=== PATIENT | female | born 1945 | race Caucasian/White ===

== ENCOUNTER 2016-10-28 10:26 | Emergency (ER) | payer MEDICARE ==
[~2016-10-28] VITALS: Ht 170.2 cm; Wt 65.8 kg
[~2016-10-28 10:26] MED LIST: AMOX-427 PO; CHOL50004 PO; CITA10TA17; LACT1CAP71 PO; LEVO25TA2
--- NOTE | 2016-10-28 10:35 | NUR ---
BIBRA FROM HOME DUE TO NAUSEA. DENIES VOMITTING. REPORTED EPISTRIC PAIN AND ONE EIPOSDE OF LBM THIS THIS AM. PATIENT IS AAO4, HOWEVER PATIENT APPEARS ANXIOUS-- WORRIED ABOUT HER BEING SICK. PT'S SKIN IS WARM TO TOUCH AND NON DIAPHORETIC. PATIENT IS AFEBRILE. VSS.
[2016-10-28] MEDS ORDERED: MAG HYDROX/AL HYDROX/SIMETH 30 ML UDC ONE (10:59)
[2016-10-28] MEDS ORDERED: MAG HYDROX/AL HYDROX/SIMETH 30 ML UDC PO ONE (11:00)
--- NOTE | 2016-10-28 11:10 | NUR ---
RAILROAD CAR INSPECTOR AT FOR BLOOD DRAW
[2016-10-28 11:23] LABS: BASOPHILS % (AUTO) 0.6 % (0.0-2.0); EOSINOPHILS # (AUTO) 1.1 /CMM (0.0-0.7); EOSINOPHILS % (AUTO) 17.4 % (0.0-6.0); HEMATOCRIT 39 % (33-45); HEMOGLOBIN 12.8 g/dL (11.5-14.8); LYMPHOCYTES # (AUTO) 0.5 /CMM (0.8-4.8); LYMPHOCYTES % (AUTO) 8.2 % (20.0-44.0); MEAN CORPUSCULAR HEMOGLOBIN 29 PG (26.0-33.0); MEAN CORPUSCULAR HGB CONC 33 g/dl (31.0-36.0); MEAN CORPUSCULAR VOLUME 87 fL (82-100); MONOCYTES # (AUTO) 0.3 /CMM (0.1-1.30); MONOCYTES % (AUTO) 5.3 % (2.0-12.0); NEUTROPHILS # (AUTO) 4.3 /CMM (1.8-8.9); NEUTROPHILS % (AUTO) 68.5 % (43.0-81.0); PLATELET COUNT (AUTO) 166 /CMM (150-450); RDW COEFFICIENT OF VARIATION 12.4 (11.5-15.0); RED BLOOD CELL COUNT(AUTO) 4.47 MIL/uL (4.0-5.2); WHITE BLOOD COUNT (AUTO) 6.2 K/uL (4.3-11.0)
[2016-10-28 11:26] LABS: CALCIUM, SERUM 8.5 mg/dL (8.5-10.1); CREATININE 0.8 mg/dL (0.6-1.3); POTASSIUM 4.1 mmol/L (3.5-5.1)
[2016-10-28 12:22] LABS: EOSINOPHILS % (MANUAL) 17 % (0-4); LYMPHOCYTES % (MANUAL) 11 % (16-48); MONOCYTES % (MANUAL) 3 % (0-11.0); NEUTROPHILS % (MANUAL) 69 (42-76)
[2016-10-28 12:24] LABS: PLATELET ESTIMATE ADEQUATE
[2016-10-28 12:34] LABS: CREATINE KINASE MB 6.6 ng/mL (0-3.6)
[2016-10-28 12:39] VITALS: BP 124/80
--- NOTE | 2016-10-28 12:40 | NUR ---
Patient discharged to home in stable condition. Written and verbal after care instructions given. Patient verbalizes understanding of instruction.
== END 2016-10-28 12:41 | disposition home or self-care (01) ==
LOC: ER 10:30
DX: R53.1 Weakness (principal); R94.4 Abnormal results of kidney function studies; M19.90 Unspecified osteoarthritis, unspecified site; M32.9 Systemic lupus erythematosus, unspecified; M81.0 Age-related osteoporosis without current pathological fracture; E89.0 Postprocedural hypothyroidism; C50.912 Malignant neoplasm of unspecified site of left female breast; Z90.89 Acquired absence of other organs; Z90.710 Acquired absence of both cervix and uterus; Z88.6 Allergy status to analgesic agent; Z88.8 Allergy status to other drugs, medicaments and biological substances
CPT/HCPCS: 36415; 80048; 82550; 82553; 85025; 99284; A4606; Z7610

== ENCOUNTER 2017-05-24 08:03 | Emergency (ER) | payer MEDICARE ==
[~2017-05-24] VITALS: Ht 167.6 cm; Wt 61.2 kg
[2017-05-24 08:15] VITALS: BP 122/69
[2017-05-24] MEDS ORDERED: CEPHALEXIN MONOHYDRATE 500 MG CAPSULE PO ONE ×2 (08:30→08:31)
--- NOTE | 2017-05-24 08:33 | NUR ---
Patient discharged to home in stable condition. Written and verbal after care instructions given. Patient verbalizes understanding of instruction.
== END 2017-05-24 08:34 | disposition home or self-care (01) ==
LOC: ER 08:11
DX: L03.114 Cellulitis of left upper limb (principal); M32.9 Systemic lupus erythematosus, unspecified; M19.90 Unspecified osteoarthritis, unspecified site; Z90.710 Acquired absence of both cervix and uterus; Z90.12 Acquired absence of left breast and nipple; Z88.0 Allergy status to penicillin; Z88.5 Allergy status to narcotic agent
CPT/HCPCS: 99283; A4606; Z7610

== ENCOUNTER 2019-04-29 23:42 | Emergency (ER) | payer MEDICARE ==
[~2019-04-29] VITALS: Ht 167.6 cm; Wt 54.4 kg
--- NOTE | 2019-04-30 00:15 | NUR ---
[id number] FROM HOME C/O VOMITTING X1 DAY. -ABDOMINAL PAIN PT STATES "I FEEL LIKE SOMEONE IS CHOKING ME WHILE I'M EATING" TO ER BED 4, VSS, AWAITING MED EVAL
[2019-04-30] MEDS ORDERED: ONDANSETRON HCL/PF 4 MG/2 ML VIAL IV ONE (00:30)
[2019-04-30] MEDS ORDERED: IV NS 0.9% 1,000 ML IV PRN (00:30)
[2019-04-30 00:34] LABS: BASOPHILS # (AUTO) 0.1 /CMM (0.0-0.2); EOSINOPHILS % (AUTO) 2.2 % (0.0-6.0); HEMATOCRIT 39 % (33-45); HEMOGLOBIN 13.1 g/dL (11.5-14.8); LYMPHOCYTES # (AUTO) 0.5 /CMM (0.8-4.8); LYMPHOCYTES % (AUTO) 8.8 % (20.0-44.0); MEAN CORPUSCULAR HGB CONC 34 g/dl (31.0-36.0); MEAN CORPUSCULAR VOLUME 89 fL (82-100); MONOCYTES # (AUTO) 0.4 /CMM (0.1-1.30); MONOCYTES % (AUTO) 7.4 % (2.0-12.0); NEUTROPHILS # (AUTO) 4.8 /CMM (1.8-8.9); NEUTROPHILS % (AUTO) 80.6 % (43.0-81.0); PLATELET COUNT (AUTO) 177 /CMM (150-450); RED BLOOD CELL COUNT(AUTO) 4.36 MIL/uL (4.0-5.2)
[2019-04-30 00:44] LABS: CALCIUM, SERUM 10.4 mg/dL (8.5-10.1); CARBON DIOXIDE 33 mmol/L (21-32); CHLORIDE 103 mmol/L (98-107); CREATININE 0.9 mg/dL (0.6-1.3); GLUCOSE 123 mg/dL (74-106); POTASSIUM 4.4 mmol/L (3.5-5.1); SODIUM SERUM 140 mmol/L (136-145); UREA NITROGEN, BLOOD 29 mg/dL (7-18)
[2019-04-30] MEDS ORDERED: PROCHLORPERAZINE EDISYLATE 10 MG/2 ML VIAL ONE (01:38)
[2019-04-30] MEDS ORDERED: PROCHLORPERAZINE EDISYLATE 10 MG/2 ML VIAL IVP ONE (02:00)
[2019-04-30 02:36] VITALS: BP 172/83
--- NOTE | 2019-04-30 02:36 | NUR ---
Patient discharged to home in stable condition. Written and verbal after care instructions given. Patient verbalizes understanding of instruction.
== END 2019-04-30 02:37 | disposition home or self-care (01) ==
LOC: ER 23:45
DX: R11.2 Nausea with vomiting, unspecified (principal); Z90.89 Acquired absence of other organs; Z85.3 Personal history of malignant neoplasm of breast; Z90.710 Acquired absence of both cervix and uterus; Z90.12 Acquired absence of left breast and nipple; Z88.0 Allergy status to penicillin; Z88.5 Allergy status to narcotic agent; Z79.899 Other long term (current) drug therapy
CPT/HCPCS: 36415; 80048; 85025; 96361; 96374; 96375; 99283; J0780; J7030

== ENCOUNTER 2019-04-30 05:54 | Emergency (ER) | payer MEDICARE ==
[~2019-04-30] VITALS: Ht 167.6 cm; Wt 54.4 kg
--- NOTE | 2019-04-30 06:13 | NUR ---
PT BIBS C/O:NAUSEA, DISCHARGED HOME FROM ER EARLIER TODAY, UNABLE TO GET INTO HER HOUSE, PER PT, SHE'S "BEEN SITTING IN HER CAR AND NAUSEA GOT WORSE" TO ER BED 4, VSS, AWITING MED EVAL
[2019-04-30] MEDS ORDERED: IV NS 0.9% 1,000 ML BAG IV ONE (06:30)
--- NOTE | 2019-04-30 08:29 | NUR ---
pt awake. sts feeling much better and is trying to call so she can go home.
--- NOTE | 2019-04-30 08:46 | NUR ---
pt now worried. unable to contact who is 89 yrs old. we will call for welfare check.
--- NOTE | 2019-04-30 09:38 | NUR ---
pt was able to contact and is ready to be discharged. pt is ambulatory w/ steady gait. dr farias made aware.
--- NOTE | 2019-04-30 09:41 | NUR ---
Patient discharged to home in stable condition. Written and verbal after care instructions given. Patient verbalizes understanding of instruction.IV removed. Catheter intact and site benign. Pressure and 4x4 applied to site. No bleeding noted.
[2019-04-30 09:43] VITALS: BP 121/77
== END 2019-04-30 09:44 | disposition home or self-care (01) ==
LOC: ER 05:56
DX: R53.1 Weakness (principal); R11.2 Nausea with vomiting, unspecified; Z85.3 Personal history of malignant neoplasm of breast; Z90.89 Acquired absence of other organs; Z90.710 Acquired absence of both cervix and uterus; Z90.12 Acquired absence of left breast and nipple; Z88.0 Allergy status to penicillin; Z88.5 Allergy status to narcotic agent; Z79.899 Other long term (current) drug therapy; Z88.8 Allergy status to other drugs, medicaments and biological substances
CPT/HCPCS: 96360; 99283; J7030

== ENCOUNTER 2019-05-16 11:59 | Emergency (ER) | payer MEDICARE, OTHER ==
[~2019-05-16] VITALS: Ht 167.6 cm; Wt 54.4 kg
--- NOTE | 2019-05-16 12:10 | NUR ---
PT CAME INTO THE ED C/O NAUSEA, VOMITING X 3 WEEKS. PT AAOX4, VSS, BREATHING EVENAND UBNLABORED ON ROOM AIR W/ NAD NOTED. PT CONNECTED TO THE MONITOR AND POX.
[2019-05-16] MEDS ORDERED: ONDANSETRON HCL/PF 4 MG/2 ML VIAL ONE (12:24)
[2019-05-16 12:28] LABS: BASOPHILS # (AUTO) 0.1 /CMM (0.0-0.2); BASOPHILS % (AUTO) 1.2 % (0.0-2.0); EOSINOPHILS % (AUTO) 2.6 % (0.0-6.0); HEMATOCRIT 42 % (33-45); HEMOGLOBIN 13.8 g/dL (11.5-14.8); LYMPHOCYTES # (AUTO) 0.4 /CMM (0.8-4.8); LYMPHOCYTES % (AUTO) 7.4 % (20.0-44.0); MEAN CORPUSCULAR HGB CONC 33 g/dl (31.0-36.0); MEAN CORPUSCULAR VOLUME 91 fL (82-100); MONOCYTES # (AUTO) 0.4 /CMM (0.1-1.30); MONOCYTES % (AUTO) 7.7 % (2.0-12.0); NEUTROPHILS # (AUTO) 4.5 /CMM (1.8-8.9); NEUTROPHILS % (AUTO) 81.1 % (43.0-81.0); PLATELET COUNT (AUTO) 182 /CMM (150-450); RED BLOOD CELL COUNT(AUTO) 4.65 MIL/uL (4.0-5.2); WHITE BLOOD COUNT (AUTO) 5.6 K/uL (4.3-11.0)
[2019-05-16] MEDS ORDERED: ONDANSETRON HCL/PF 4 MG/2 ML VIAL IVP ONE (12:30)
[2019-05-16] MEDS ORDERED: IV NS 0.9% 1,000 ML BAG IV ONE (12:30)
[2019-05-16 12:34] LABS: CALCIUM, SERUM 10.3 mg/dL (8.5-10.1); POTASSIUM 4.5 mmol/L (3.5-5.1)
[2019-05-16 12:40] LABS: ALBUMIN 3.7 g/dL (3.4-5.0); BILIRUBIN,DIRECT 0.2 mg/dL (0.0-0.2); BILIRUBIN,TOTAL 0.7 mg/dL (0.2-1.0); TOTAL PROTEIN, SERUM 7.6 g/dL (6.4-8.2)
[2019-05-16] MEDS ORDERED: METOCLOPRAMIDE HCL 10 MG TABLET ONE (12:58)
[2019-05-16] MEDS ORDERED: METOCLOPRAMIDE HCL 10 MG/10 ML UDC PO ONE (13:00)
[2019-05-16 14:15] VITALS: BP 128/81
--- NOTE | 2019-05-16 14:15 | NUR ---
Patient discharged to home in stable condition. Written and verbal after care instructions given. Patient verbalizes understanding of instruction.
[2019-06-10] MEDS ORDERED: SULF1TAB48 PO (11:55)
== END 2019-05-16 14:15 | disposition home or self-care (01) ==
LOC: ER 11:59
DX: R11.2 Nausea with vomiting, unspecified (principal); E86.0 Dehydration; Z85.3 Personal history of malignant neoplasm of breast; Z90.710 Acquired absence of both cervix and uterus; Z90.89 Acquired absence of other organs; Z90.12 Acquired absence of left breast and nipple; Z88.0 Allergy status to penicillin; Z88.5 Allergy status to narcotic agent; Z79.899 Other long term (current) drug therapy
CPT/HCPCS: 36415; 80048; 80076; 83690; 85025; 93005; 96361; 96374; 99284; J2405; J7030; J8597

== ENCOUNTER 2019-06-09 12:22 | Inpatient (IN) | payer MEDICARE ==
[~2019-06-09] VITALS: Ht 167.6 cm; Wt 49.2 kg
--- NOTE | 2019-06-09 12:27 | NUR ---
BIB FROM HOME C/O PROGRESSING GEN WEAKNESS FOR 5 DAYS, +NAUSEA, RECENTLY PLACE GTUBE LAST JUN 04 SINCE THEN, TO ER BED 11, HOOKED TO [employer] MONITOR, PATIENT NOTED LOOKING PALE, CHANGED TO HOSP GOWN, PROVIDED W WARM BLANKET, AWAITING MD ARROYO.
--- NOTE | 2019-06-09 12:28 | NUR ---
DR SOSA AT BEDSIDE
[2019-06-09] MEDS ORDERED: IV NS 0.9% 1,000 ML BAG IV ONE (12:30)
[2019-06-09] MEDS ORDERED: ONDANSETRON HCL/PF 4 MG/2 ML VIAL IVP ONE (12:30)
--- NOTE | 2019-06-09 12:35 | NUR ---
GOT [id number]
[2019-06-09 12:49] LABS: BASOPHILS # (AUTO) 0.1 /CMM (0.0-0.2); BASOPHILS % (AUTO) 0.8 % (0.0-2.0); EOSINOPHILS % (AUTO) 1.9 % (0.0-6.0); HEMATOCRIT 48 % (33-45); HEMOGLOBIN 15.7 g/dL (11.5-14.8); LYMPHOCYTES # (AUTO) 0.5 /CMM (0.8-4.8); LYMPHOCYTES % (AUTO) 7.5 % (20.0-44.0); MEAN CORPUSCULAR HGB CONC 33 g/dl (31.0-36.0); MEAN CORPUSCULAR VOLUME 91 fL (82-100); MONOCYTES # (AUTO) 0.3 /CMM (0.1-1.30); MONOCYTES % (AUTO) 4.9 % (2.0-12.0); NEUTROPHILS # (AUTO) 5.1 /CMM (1.8-8.9); NEUTROPHILS % (AUTO) 84.9 % (43.0-81.0); PLATELET COUNT (AUTO) 332 /CMM (150-450); RED BLOOD CELL COUNT(AUTO) 5.24 MIL/uL (4.0-5.2)
--- NOTE | 2019-06-09 12:50 | NUR ---
REFUSED CXR, MADE AWARE
[2019-06-09] MEDS ORDERED: ONDANSETRON HCL/PF 4 MG/2 ML VIAL ONE (12:57)
--- NOTE | 2019-06-09 13:01 | NUR ---
REPORT GIVEN TO MEÑO HOOKS OF [facility] UNIT
[2019-06-09] MEDS ORDERED: PRED1TAB PO (13:35)
[2019-06-09] MEDS ORDERED: LEVO112T2 PO (13:35)
--- NOTE | 2019-06-09 13:40 | NUR ---
CALLED [facility]
[2019-06-09 13:43] LABS: ALANINE AMINOTRANSFERASE 35 U/L (12-78); ALBUMIN 3.9 g/dL (3.4-5.0); ALKALINE PHOSPHATASE 76 U/L (46-116); ASPARTATE AMINOTRANSFERASE 56 U/L (15-37); BILIRUBIN,DIRECT 0.1 mg/dL (0.0-0.2); BILIRUBIN,TOTAL 0.5 mg/dL (0.2-1.0); CALCIUM, SERUM 11.2 mg/dL (8.5-10.1); CARBON DIOXIDE 30 mmol/L (21-32); CHLORIDE 97 mmol/L (98-107); CREATININE 1.3 mg/dL (0.6-1.3); GLUCOSE 195 mg/dL (74-106); LIPASE 500 U/L (73-393); POTASSIUM 4.3 mmol/L (3.5-5.1); SODIUM SERUM 136 mmol/L (136-145); TOTAL PROTEIN, SERUM 8.8 g/dL (6.4-8.2); UREA NITROGEN, BLOOD 20 mg/dL (7-18)
[2019-06-09 14:19] LABS: APPEARANCE,URINE Clear (CLEAR); BILIRUBIN,URINE Negative (NEGATIVE); BLOOD, URINE Trace-intact Ery/uL (NEGATIVE); COLOR,URINE Yellow (YELLOW); KETONES,URINE Negative (NEGATIVE); LEUKOCYTE ESTERASE ,URINE Small (NEGATIVE); NITRITE, URINE Negative (NEGATIVE); PROTEIN,URINE Negative (NEGATIVE); UGLUCOSE Negative (NEGATIVE); UROBILINOGEN,URINE 0.2 EU/dL (0.2)
[2019-06-09 14:30] VITALS: BP 124/71
[2019-06-09 14:35] LABS: BACTERIA,URINE Few /HPF (None Seen); HYALINE CASTS, URINE Many /LPF (None Seen); RBC,URINE 0-2 /HPF (0-2); SQUAMOUS EPITHELIAL CELL,UR Few /HPF (None Seen)
[2019-06-09] MEDS ORDERED: Z GUARD REMEDY 2 OZ OINT TP PRN (15:30)
[2019-06-09] MEDS ORDERED: MAGNESIUM HYDROXIDE 30 ML UDC PO PRN (15:30)
[2019-06-09] MEDS ORDERED: ONDANSETRON HCL/PF 4 MG/2 ML VIAL IVP PRN (15:30)
[2019-06-09] MEDS ORDERED: ACETAMINOPHEN 325 MG TABLET PO PRN (15:30)
--- NOTE | 2019-06-09 15:35 | NUR ---
MS RN ADMITTING NOTES PATIENT ADMITTED TO UNIT AT 1425 VIA [facility]. PT ABLE TO TRANSFER AND AMBULATE SELF FROM [facility] TO BED WITH ASSISTANCE.WEAK GAIT. A/O X4. ABLE TO MAKE NEEDS KNOWN, NO C/O PAIN OR DISCOMFORTS AT THIS TIME. DENIES S/I/HI. VERBALIZED THAT NO BLOOD DRAW OR BP ON LEFT ARM DUE TO LEFT MASTECTOMY. PT ORIENTED TO ROOM AND UNIT. PT WITH DIAGNOSIS OF PANCREATITIS WITH SECONDARY DX OF DEHYDRATION. V/S TAKEN AND RECORDED. SKIN IS INTACT BUT NOTED SCATTERED DISCOLORATION/BRUISE ON RIGHT ARM/HAND. IV ACCESS NOTED ON RAC G#18, INTACT AND PATENT, IVF TO BE STARTED ORDERED. G-TUBE FR #[address] TO LEFT SIDE OF ABDOMEN WITH DRESSING C/D/I. SAFETY MEASURES INITIATED. BED PLACED IN, LOWEST LOCKED POSITION WITH SR UP X2. CALL LIGHT WITHIN REACH. WILL CONTINUE TO MONITOR PT ACCORDINGLY.
[2019-06-09] MEDS ORDERED: ENOXAPARIN SODIUM 40 MG/0.4 ML DISP.SYRIN SQ SCH (16:00)
[2019-06-09 16:30] VITALS: BP_SYST 118; BP_SYST 125; BP_SYST 130; BP_DIAS 67; BP_DIAS 68; BP_DIAS 73
[2019-06-09] MEDS: IV NS 0.9% 1,000 ML IV PRN (16:41)
[2019-06-09 16:52] VITALS: BP 157/85
[2019-06-09 16:56] VITALS: BP 118/73
--- NOTE | 2019-06-09 18:38 | NUR ---
MS RN CLOSING NOTES PATIENT IN BED AWAKE AND RESTING COMFORTABLY. A/O X4. ABLE TO MAKE NEEDS AND CONCERNS KNOWN. ON ROOM AIR, TOLERATING WELL WITH NO SOB NOTED. PATIENT HAS A G-TUBE THAT WAS INSERTED ON JUNE 04, 2019, THE SITE IS CLEAN AND DRESSING C/D/I.. PATIENT IS CURRENTLY NPO. IV ACCES ON RAC INTACT ANDS PATENT, IVF OF NS @125 ML/HR INFUSING WELL, NO S/S OF INFILTRATIONS NOTED. ALL NEEDS AND CARE ATTENDED WELL. BED IS LOCKED AND IN LOWEST POSITION. CALL LIGHT WITHIN REACH. WILL ENDORSE TO SALES TRAINER NURSE FOR [employer].
--- NOTE | 2019-06-09 20:00 | NUR ---
MS RN NOTES RECEIVED PATIENT AWAKE IN BED WITH NO DISTRESS NOTED. CALL LIGHT WITHIN REACH. PERIPHERAL LINE INTACT AND PATENT. GT IN PLACE, CLAMPED, WITH NO REDNESS, DRAINAGE, OR BLEEDING NOTED. ENCOURAGED USE OF CALL LIGHT FOR ASSISTANCE AND VERBALIZED GOOD UNDERSTANDING. ROOM FREE OF CLUTTER AND BELONGINGS KEPT NEAR BEDSIDE. BED IN LOW LOCK SETTING WITH BED ALARM ON AND FUNCTIONING PROPERLY. WILL CONTINUE TO MONITOR.
[2019-06-09 20:54] VITALS: BP 128/67
[2019-06-10] MEDS: IV NS 0.9% 1,000 ML IV PRN (00:40)
--- NOTE | 2019-06-10 06:31 | NUR ---
MS RN NOTES PATIENT ASLEEP IN BED WITH NO DISTRESS NOTED. CALL LIGHT WITHIN REACH. GT INTACT AND CLAMPED. NPO STATUS MAINTAINED DURING SHIFT. NO C/O PAIN OR DISCOMFORT. PERIPHERAL LINE INTACT AND PATENT. BED IN LOW LOCK SETTING. ALL BELONGINGS KEPT NEAR BEDSIDE. WILL ENDORSE TO ONCOMING SHIFT.
[2019-06-10 07:13] LABS: CALCIUM, SERUM 8.8 mg/dL (8.5-10.1); CREATININE 0.8 mg/dL (0.6-1.3); MAGNESIUM 1.8 mg/dL (1.8-2.4); PHOSPHORUS 2.8 mg/dL (2.5-4.9); POTASSIUM 4.2 mmol/L (3.5-5.1)
[2019-06-10 07:21] LABS: BASOPHILS # (AUTO) 0.1 /CMM (0.0-0.2); BASOPHILS % (AUTO) 2.1 % (0.0-2.0); EOSINOPHILS % (AUTO) 4.1 % (0.0-6.0); HEMATOCRIT 37 % (33-45); HEMOGLOBIN 12.3 g/dL (11.5-14.8); LYMPHOCYTES # (AUTO) 0.4 /CMM (0.8-4.8); LYMPHOCYTES % (AUTO) 9.7 % (20.0-44.0); MEAN CORPUSCULAR HGB CONC 33 g/dl (31.0-36.0); MEAN CORPUSCULAR VOLUME 90 fL (82-100); MONOCYTES # (AUTO) 0.4 /CMM (0.1-1.30); MONOCYTES % (AUTO) 8.4 % (2.0-12.0); NEUTROPHILS # (AUTO) 3.5 /CMM (1.8-8.9); NEUTROPHILS % (AUTO) 75.7 % (43.0-81.0); PLATELET COUNT (AUTO) 238 /CMM (150-450); RED BLOOD CELL COUNT(AUTO) 4.11 MIL/uL (4.0-5.2); WHITE BLOOD COUNT (AUTO) 4.6 K/uL (4.3-11.0)
[2019-06-10 07:34] LABS: THYROID STIMULATING HORMONE 14.653 uIU/mL (0.358-3.74)
[2019-06-10 08:00] VITALS: BP 143/76
--- NOTE | 2019-06-10 08:00 | NUR ---
MS RN OPENING NOTES Received Patient awake and resting in bed. A/O x 4. VS stable with no acute distress. Breathing even and unlabored on room air with no respiratory distress. Denies pain at this time. G-Tube clean, intact, patent and flushing well. 18g PIV on RAC clean, intact, patent and flushing well with NS infusing at 125ml/hr. Safety precautions in place. Bed locked and set to lowest position with side rails x 2 up. All needs rendered at this time. Call light within reach. Will continue to monitor.
[2019-06-10] MEDS ORDERED: predniSONE 1 MG TABLET PO SCH (09:00)
[2019-06-10] MEDS ORDERED: LEVOTHYROXINE SODIUM 112 MCG TABLET PO SCH (09:00)
[2019-06-10] MEDS ORDERED: PANTOPRAZOLE 40 MG VIAL IV SCH (09:00)
[2019-06-10] MEDS ORDERED: SULF1TAB48 PO (11:55)
[2019-06-10] MEDS ORDERED: LEVOFLOXACIN 500 MG /D5W 100ML 500 MG in PREMIX 1 EA IV SCH (12:00)
[2019-06-10] MEDS ORDERED: NUTRITIONAL SUPPLEMENT/FIBER 250 ML CAN GT ONE (13:00)
[2019-06-10] MEDS ORDERED: JEVITY 1.2 CAL 1,000 ML BOTTLE GT PRN ×2 (14:00→14:39)
--- NOTE | 2019-06-10 17:33 | NUR ---
MS ELEMENT BURNER NOTES Patient discharged for home at this time. Patient in stable condition. VS stable with no acute distress. Breathing even and unlabored on room air with no respiratory distress. Denies pain. G-Tube in place and patent. Skin intact. Medication reconciliation and discharge orders reviewed and explained to Patient. Patient verbalized understanding. All belongings with Patient. Patient will follow up with home health. Escorted Patient to the lobby for safety. Patient picked up by [employer].
== END 2019-06-10 18:47 | disposition home or self-care (01) | DRG 689 ==
LOC: ER 12:22 → MEDSG2 14:00
PROVIDERS: ADMIT Registered Nurse; ATTEND Registered Nurse
DX: N39.0 Urinary tract infection, site not specified (principal); K85.90 Acute pancreatitis without necrosis or infection, unspecified; E86.0 Dehydration; I10 Essential (primary) hypertension; I48.91 Unspecified atrial fibrillation; E78.5 Hyperlipidemia, unspecified; Z85.3 Personal history of malignant neoplasm of breast; Z93.1 Gastrostomy status; R53.1 Weakness; Z90.12 Acquired absence of left breast and nipple; Z90.711 Acquired absence of uterus with remaining cervical stump; R79.89 Other specified abnormal findings of blood chemistry; M19.90 Unspecified osteoarthritis, unspecified site; K22.0 Achalasia of cardia; L93.0 Discoid lupus erythematosus; E89.0 Postprocedural hypothyroidism; M81.0 Age-related osteoporosis without current pathological fracture
CPT/HCPCS: 36415; 80048-TC; 80061-TC; 80076-TC; 81000-TC; 83690-TC; 83735-TC; 84100-TC; 84443-TC; 84484-TC; 85025-TC; 87081-TC; 87086-TC; 97116-TC; 97530-TC; A4216; C9113; G0378; J1650; J1956; J2405; J7030; J7512

== ENCOUNTER 2019-10-13 10:36 | Emergency (ER) | payer MEDICARE ==
[~2019-10-13] VITALS: Ht 167.6 cm; Wt 54.9 kg
[~2019-10-13 10:36] MED LIST changes: -AMOX-427 PO; -CHOL50004 PO; -CITA10TA17; -LACT1CAP71 PO; +LEVO112T2 PO; -LEVO25TA2; +PRED1TAB PO; +SULF1TAB48 PO
--- NOTE | 2019-10-13 10:38 | NUR ---
[facility]EL FROM [facility]. SENT BY DR SETHI FOR CENTRAL CATHETER INSERTION FOR TPN. TO ER BED 12, HOOKED TO MONITOR, VSS. AWAITING MD ARROYO
--- NOTE | 2019-10-13 11:20 | NUR ---
PICC LINE NURSE AT BEDSIDE.
--- NOTE | 2019-10-13 11:23 | NUR ---
PICC NURSE AT BEDSIDE
--- NOTE | 2019-10-13 11:59 | NUR ---
CALLED THE INTERVENTIONAL RADIOLOGIST AT [phone] AND LEFT A MESSAGE. AWAITING HIS CALL BACK
--- NOTE | 2019-10-13 12:07 | NUR ---
TALKING TO SARY PEREZ
[2019-10-13] MEDS ORDERED: FENT1PAT6 TD (12:51)
[2019-10-13] MEDS ORDERED: INSU100V3 SQ (12:51)
[2019-10-13] MEDS ORDERED: BLOO-668 IN (12:51)
[2019-10-13] MEDS ORDERED: TPN ADD IV (12:51)
[2019-10-13] MEDS ORDERED: HYDR1DIS2 IV (12:51)
--- NOTE | 2019-10-13 14:10 | NUR ---
dr. oscar grimaldo at bedside for picc line insertion
--- NOTE | 2019-10-13 14:21 | NUR ---
picc line insertion completed. chest xray done and placement confirmed by Dr. Harvey Grider
--- NOTE | 2019-10-13 16:08 | NUR ---
SPOKE WITH NEVA XAVIER OF [facility] TO INFORM THAT PT IS COMING BACK TO THE FACILITY.
--- NOTE | 2019-10-13 16:11 | NUR ---
CALLED [facility]. ETA 30 MINUTES.
--- NOTE | 2019-10-13 16:44 | NUR ---
[facility] AT BEDSIDE FOR PT TRANSPORT TO [place]. REPORT GIVEN. PT IS IN STABLE CONDITION. AFTERCARE INSTRUCTIONS GIVEN TO PT.
[2019-10-13 16:46] VITALS: BP 128/76
== END 2019-10-13 16:47 | disposition home or self-care (01) ==
LOC: ER 10:43
DX: E86.0 Dehydration (principal); Z45.2 Encounter for adjustment and management of vascular access device; Z85.3 Personal history of malignant neoplasm of breast; Z90.710 Acquired absence of both cervix and uterus; Z90.12 Acquired absence of left breast and nipple; Z98.890 Other specified postprocedural states; Z88.0 Allergy status to penicillin; Z88.8 Allergy status to other drugs, medicaments and biological substances; Z88.5 Allergy status to narcotic agent; Z79.899 Other long term (current) drug therapy; Z79.4 Long term (current) use of insulin
CPT/HCPCS: 36569; 71045; 99285; C1751